=== PATIENT | female | born 1980 | race Caucasian/White ===

== ENCOUNTER → 2017-09-16 | Outpatient (CLI) | payer BC ==
[2017-09-16 09:21] LABS: T4, Free (Free Thyroxine) 0.96 ng/dL (0.78-2.19)
== END | disposition home or self-care (01) ==
LOC: LABWHC1 07:37
PROVIDERS: ATTEND Nurse Practitioner Women's Health
DX: E04.0 Nontoxic diffuse goiter (principal)
CPT/HCPCS: 36415; 84439; 84443

== ENCOUNTER → 2022-01-24 | Outpatient (CLI) | payer OTHER ==
--- NOTE | 2022-01-24 11:56 | MM ---
Reason for Exam: Screening (asymptomatic). Last mammogram was performed 8 year(s) and 1 month(s) ago. Patient History: Menarche at age 11. First Full-Term at age 17. Currently using Hormonal Contraceptives, for 10 years. Maternal aunt had breast cancer, age 50. Paternal aunt had breast cancer. Paternal cousin had breast cancer. Paternal aunt tested for BRCA1 outcome was positive. Cousin tested for BRCA1 outcome was positive. Last menstrual period: 01/11/2022 Risk Values: Bev 5 year model risk: 0.5%. NCI Lifetime model risk: 7.1%. Film Views: Bilateral CC views were taken. Bilateral MLO views were taken. Prior Study Comparison: 12/14/2013 Bilateral Screening Mammogram, [facility]. Tissue Density: The breast tissue is extremely dense which could obscure a lesion on mammography. Findings: Analyzed By CAD. No suspicious new mass or worrisome cluster of microcalcification clearly seen in either breast. Overall Assessment: Negative, BI-RAD 1 Management: Screening Mammogram of both breasts in 1 year. A clinical breast exam by your physician is recommended on an annual basis and results should be correlated with mammographic findings. Some advise annual bilateral breast ultrasound surveillance in patients with background extremely dense tissue.
== END | disposition home or self-care (01) ==
LOC: RADMAMWWP 06:53
PROVIDERS: ATTEND Obstetrics & Gynecology
DX: Z12.31 Encounter for screening mammogram for malignant neoplasm of breast (principal); Z80.3 Family history of malignant neoplasm of breast
CPT/HCPCS: 77063; 77067